=== PATIENT | male | born 1970 | race American Indian/Alaskan Native ===

== ENCOUNTER 2018-11-12 01:27 | Emergency (ER) | payer OTHER ==
[2018-11-12] MEDS ORDERED: NACL 0.9% 1000 ML 1,000 ML IV ONE ×2 (05:01→09:56)
[2018-11-12] MEDS ORDERED: ZOFRAN ODT PO ONE (05:03)
[2018-11-12 05:23] LABS: Basophils # (Auto) 0.1 K/mm3 (0.0-0.1); Basophils % (Auto) 0.4 % (0.0-1.8); Hematocrit 42.5 % (35.5-45.6); Hemoglobin 14.6 gm/dl (11.8-15.2); Lymphocytes # (Auto) 0.7 K/mm3 (1.2-5.4); Lymphocytes % (Auto) 5.1 % (13.4-35.0); Mean Corpuscular HGB Conc 34 % (32-34); Mean Corpuscular Volume 91 fl (84-94); Monocytes # (Auto) 0.8 K/mm3 (0.0-0.8); Monocytes % (Auto) 5.9 % (0.0-7.3); Platelet Count 230 K/mm3 (140-440); Red Blood Count 4.67 M/mm3 (3.65-5.03); Red Cell Distribution Width 13.1 % (13.2-15.2)
[2018-11-12 05:43] LABS: Alanine Aminotransferase 16 units/L (7-56); Albumin 4.6 g/dL (3.9-5); BUN/Creatinine Ratio 11; Blood Urea Nitrogen 12 mg/dL (9-20); Calcium 8.9 mg/dL (8.4-10.2); Hemolysis Index 10
--- NOTE | 2018-11-12 07:42 | Emergency Department Report ---
ED Abdominal Pain HPI - General Chief Complaint: Abdominal Pain Stated Complaint: ABDOMINAL PAIN/BACK PAIN Time Seen by Provider: 11/12/18 07:42 Source: patient Mode of arrival: Ambulatory Limitations: No Limitations - History of Present Illness Initial Comments: Patient is a pleasant 48-year-old -[place]ian who comes to the ER complaining of right flank pain associated with nausea and vomiting this morning. He is afebrile. Denies diarrhea. She did report dark colored urine that he felt like it was related to [employer]. Abdominal pain medication that he had taken Home medications none Past medical history none Past surgical history none MD Complaint: abdominal pain -: Sudden Location: R flank Severity scale (0 -10): 10 Consistency: intermittent, colicky Associated Symptoms: nausea, vomiting - Related Data Previous Rx's Medication Instructions Recorded Last Taken Type Ondansetron [Zofran Odt] 4 mg PO Q8HR PRN #10 tab.rapdis 11/12/18 Unknown Rx Sulfamethoxazole/Trimethoprim 1 each PO BID #6 tablet 11/12/18 Unknown Rx [Bactrim DS TAB] Tamsulosin HCl [Flomax] 0.4 mg PO DAILY #10 cap.er.24h 11/12/18 Unknown Rx traMADol [Ultram] 50 mg PO Q6HR PRN #12 tablet 11/12/18 Unknown Rx Allergies Allergy/AdvReac Type Severity Reaction Status Date / Time No Known Allergies Allergy Verified 11/12/18 01:32 ED Review of Systems ROS: Stated complaint: ABDOMINAL PAIN/BACK PAIN Other details as noted in HPI Comment: All other systems reviewed and negative Constitutional: denies: chills Eyes: denies: eye pain ENT: denies: throat pain Respiratory: denies: cough Cardiovascular: denies: orthopnea Gastrointestinal: as per HPI, abdominal pain Genitourinary: as per HPI, dysuria. denies: urgency Musculoskeletal: denies: back pain Skin: denies: rash Neurological: denies: headache Psychiatric: denies: anxiety Hematological/Lymphatic: denies: easy bleeding ED Past Medical Hx - Past Medical History Previous Medical History?: No - Surgical History Past Surgical History?: No - Social History Smoking Status: Never Smoker - Medications Home Medications: Home Medications Medication Instructions Recorded Confirmed Last Taken Type Ondansetron [Zofran Odt] 4 mg PO Q8HR PRN #10 tab.rapdis 11/12/18 Unknown Rx Sulfamethoxazole/Trimethoprim 1 each PO BID #6 tablet 11/12/18 Unknown Rx [Bactrim DS TAB] Tamsulosin HCl [Flomax] 0.4 mg PO DAILY #10 cap.er.24h 11/12/18 Unknown Rx traMADol [Ultram] 50 mg PO Q6HR PRN #12 tablet 11/12/18 Unknown Rx ED Physical Exam - General Limitations: No Limitations General appearance: alert - Head Head exam: Present: atraumatic, normocephalic - Eye Eye exam: Present: normal appearance, PERRL Pupils: Present: normal accommodation - ENT ENT exam: Present: normal exam, mucous membranes moist - Neck Neck exam: Present: normal inspection - Respiratory Respiratory exam: Present: normal lung sounds bilaterally - Cardiovascular Cardiovascular Exam: Present: regular rate - GI/Abdominal GI/Abdominal exam: Present: soft, normal bowel sounds - Rectal Rectal exam: Present: deferred - Extremities Exam Extremities exam: Present: normal inspection, full ROM - Back Exam Back exam: Present: normal inspection, full ROM. Absent: CVA tenderness (R), CVA tenderness (L) - Neurological Exam Neurological exam: Present: alert, oriented X3, CN II-XII intact - Psychiatric Psychiatric exam: Present: normal affect, normal mood - Skin Skin exam: Present: warm, dry, intact ED Course Vital Signs 11/12/18 11/12/18 11/12/18 02:28 04:55 08:28 Temperature 98.1 F 98.1 F Pulse Rate 87 71 Respiratory 18 18 18 Rate Blood Pressure 116/54 116/54 O2 Sat by Pulse 99 99 98 Oximetry ED Medical Decision Making - Lab Data Result diagrams: 11/12/18 05:09 11/12/18 05:09 - Radiology Data POS NON OBSTRUCTING STONE - Medical Decision Making Labs 11/12/18 11/12/18 11/12/18 05:09 05:09 07:42 WBC 12.8 H RBC 4.67 Hgb 14.6 Hct 42.5 MCV 91 MCH 31 MCHC 34 RDW 13.1 L Plt Count 230 Lymph % (Auto) 5.1 L Burnet % (Auto) 5.9 Eos % (Auto) 0.0 Baso % (Auto) 0.4 Lymph # 0.7 L Burnet # 0.8 Eos # 0.0 Baso # 0.1 Seg Neutrophils % 88.6 H Seg Neutrophils # 11.4 H Sodium 142 Potassium 3.9 Chloride 103.3 Carbon Dioxide 25 Anion Gap 18 BUN 12 Creatinine 1.1 Estimated GFR > 60 BUN/Creatinine Ratio 11 Glucose 131 H Calcium 8.9 Total Bilirubin 0.40 AST 16 ALT 16 Alkaline Phosphatase 81 Total Protein 7.7 Albumin 4.6 Albumin/Globulin Ratio 1.5 Lipase 32 Urine Color Dark yellow Urine Turbidity Cloudy Urine pH 6.0 Ur Specific Smoot 1.028 Urine Protein 100 mg/dl Urine Glucose (UA) Neg Urine Ketones 20 Urine Blood Lg Urine Nitrite Neg Urine Bilirubin Neg Urine Urobilinogen < 2.0 Ur Leukocyte Esterase Neg Urine WBC (Auto) 7.0 H Urine RBC (Auto) > 182.0 U Epithel Cells (Auto) < 1.0 Urine Bacteria (Auto) 1+ Urine Mucus 1+ Urine Yeast (Budding) Few CT POS FOR STONE, NON OBSTRUCTING, NO HYDRO NO FEVER WBC 12.8 CR 1.1 MEDICATED FOR PAIN AND NAUSEA 1L NS PAIN CONTROLLED WILL DC HOME WITH DC PLAN OF CARE Critical care attestation.: If time is entered above; I have spent that time in minutes in the direct care of this critically ill patient, excluding procedure time. ED Disposition Clinical Impression: Kidney stone Disposition: DC-01 TO HOME OR SELFCARE Is pt being admited?: No Does the pt Need Aspirin: No Condition: Stable Instructions: Kidney Stones (ED) Additional Instructions: DRINK A LOT OF WATER MEDS ORDERED FOLLOW UP WITH UROLOGY REFERRAL BELOW STRAIN URINE [facility] [Primary Care Provider] - 3-5 Days SHANA POSADA MD [Staff Physician] - 3-5 Days Time of Disposition: 09:55
[2018-11-12 08:25] LABS: Bacteria,Urine 1+ /HPF (Negative); Bilirubin,Urine NEG (Negative); Blood,Urine LG (Negative); Mucus,Urine 1+ /HPF; Urobilinogen,Urine < 2.0 mg/dL (<2.0)
[2018-11-12 08:27] LABS: Color,Urine Dark Yellow (Yellow); RBC,Urine > 182.0 /HPF (0.0-6.0)
--- NOTE | 2018-11-12 09:39 | Cat Scan Report ---
CT ABDOMEN PELVIS WITHOUT CONTRAST: HISTORY: Flank pain. COMPARISON: none. TECHNIQUE: Helical CT in 1.25mm intervals without IV contrast. Sagittal and coronal reconstructions. FINDINGS: Lung bases: Normal. Liver: Normal. Biliary system: Normal. Pancreas: Normal. Spleen: Normal. Kidneys/ureters/bladder: A 4.3 mm stone is identified in the distal left ureter on image 142, series 2. There is no appreciable hydronephrosis. No renal stones are identified. The right collecting system and bladder are unremarkable. Adrenal glands: Normal. Aorta: Normal. Intestines: Normal. Appendix: Normal. Pelvic viscera: Normal. Ascites: None. Adenopathy: None. Musculoskeletal: Normal. IMPRESSION: 4.3 mm stone in the distal left ureter. No appreciable left hydronephrosis.
[2018-11-12] MEDS ORDERED: TORADOL IV ONE (09:56)
[2018-11-12] MEDS ORDERED: ZOFRAN IV ONE (09:56)
[2018-11-12 10:59] VITALS: BP 109/63
== END 2018-11-12 11:21 | disposition home or self-care (01) ==
LOC: ED 01:27
DX: N20.0 Calculus of kidney (principal)
CPT/HCPCS: 36415; 74176; 80053; 81001; 83690; 85025; 96361; 96374; 96375; 99284; J1885; J2405; J7030; Q0162